=== PATIENT | female | born 1970 ===

== ENCOUNTER 2018-03-27 21:38 | Emergency (ER) | payer SELFPAY ==
[~2018-03-27] VITALS: Ht 167.6 cm; Wt 68.0 kg
--- NOTE | 2018-03-27 21:59 | NUR ---
DR. HOLGUIN AT BEDSIDE FOR MSE.
[2018-03-27] MEDS ORDERED: ACETAMINOPHEN 325 MG TABLET ONE (22:05)
[2018-03-27] MEDS ORDERED: ACETAMINOPHEN 325 MG TABLET PO ONE (22:15)
--- NOTE | 2018-03-27 22:49 | NUR ---
PATIENT RETURNED FROM CT.
--- NOTE | 2018-03-27 23:03 | NUR ---
Patient discharged to home in stable conditon. Written and verbal after care instructions given. Patient verbalizes understanding of instructions. PATIENT LEFT WITH STABLE GAIT.
[2018-03-27 23:04] VITALS: BP 124/77
== END 2018-03-27 23:05 | disposition home or self-care (01) ==
LOC: ER 21:43
DX: S93.401A Sprain of unspecified ligament of right ankle, initial encounter (principal); S83.91XA Sprain of unspecified site of right knee, initial encounter; S09.90XA Unspecified injury of head, initial encounter; M54.2 Cervicalgia; F17.200 Nicotine dependence, unspecified, uncomplicated; W01.198A Fall on same level from slipping, tripping and stumbling with subsequent striking against other object, initial encounter; Y93.89 Activity, other specified; Y92.89 Other specified places as the place of occurrence of the external cause; Y99.8 Other external cause status
CPT/HCPCS: 70450; 72125; 73564; 73610; 99284; 99406; A4663